=== PATIENT | male | born 1945 | race African-American/Black ===

== ENCOUNTER 2022-04-10 20:28 | Emergency (ER) | payer OTHER, MEDICARE ==
[~2022-04-10] VITALS: Ht 177.8 cm; Wt 91.0 kg
[2022-04-10] MEDS ORDERED: SODIUM CHLORIDE 0.9% 500 ML IV ONE (22:45)
[2022-04-11 00:13] LABS: HEMOGLOBIN. 13.4 g/dL (14.0-18.0); MEAN CORPUSCULAR HEMOGLOBIN 30.3 pg (28.0-32.0); MEAN CORPUSCULAR VOLUME 90.6 fL (80.0-94.0); MEAN PLATELET VOLUME 7.9 fl (7.4-10.4); PLATELET 171 x1000/uL (130-400); RED BLOOD CELL COUNT 4.42 mill/uL (4.7-6.1); RED CELL DISTRIBUTION WIDTH 13.2 % (11.6-14.6)
[2022-04-11 00:23] LABS: CLARITY URINE CLEAR (CLEAR); COLOR URINE YELLOW (YELLOW); KETONES URINE NEGATIVE (NEGATIVE); LEUKOCYTE ESTERASE URINE NEGATIVE (NEGATIVE); NITRITE URINE NEGATIVE (NEGATIVE); OCCULT BLOOD URINE NEGATIVE (NEGATIVE); PH URINE 5.5 (4.5-8.0); PROTEIN URINE NEGATIVE (NEGATIVE); SPECIFIC GRAVITY URINE 1.023 (1.005-1.030); UROBILINOGEN URINE 0.2 E.U./dL (0.2-1.0)
[2022-04-11 02:59] LABS: CHLORIDE 104 mEq/L (98-107)
[2022-04-11 04:38] VITALS: BP 138/76
[2022-04-12 07:55] LABS: PLATELET ESTIMATE NORMAL
== END 2022-04-11 05:45 | disposition short-term general hospital (02) ==
LOC: ER 20:28 → CANBEDREQ 04-11 20:01
DX: R26.81 Unsteadiness on feet (principal); I10 Essential (primary) hypertension; Z20.822 Contact with and (suspected) exposure to COVID-19
CPT/HCPCS: 36415; 70450; 71045; 80053; 81003; 84484; 85025; 87426; 93005; 96360; 96361; 99285; C9803; J7030